=== PATIENT | male | born 1955 | race Hispanic/Latino ===

== ENCOUNTER 2017-09-01 11:57 | Observation (INO) | payer OTHER ==
[~2017-09-01] VITALS: Ht 180.3 cm; Wt 113.4 kg
[2017-09-01] MEDS ORDERED: ASPIRIN 81 MG CHEW TAB PO ONE ×2 (12:30→15:30)
[2017-09-01 12:36] LABS: BASOPHILS % 0.8 % (0.0-1.0); EOSINOPHILS # (AUTO) 0.1 (0.0-0.4); EOSINOPHILS % 2.4 % (0.0-6.0); HEMATOCRIT 45.4 % (38.2-49.6); HEMOGLOBIN 15.6 g/dL (14.0-18.0); LYMPHOCYTES # (AUTO) 1.5 (1.0-3.2); LYMPHOCYTES % 29.4 % (18.0-39.1); MEAN CORPUSCULAR HEMOGLOBIN 29.5 pg (28-32); MEAN CORPUSCULAR HGB CONC 34.4 g/dL (31-35); MONOCYTES # (AUTO) 0.5 (0.2-0.8); MONOCYTES % 9.3 % (4.4-11.3); NEUTROPHILS # (AUTO) 2.9 (2.1-6.9); NEUTROPHILS % 57.7 % (38.7-80.0); PLATELET COUNT 209 x10e3/uL (140-360); RED BLOOD COUNT 5.28 x10e6/uL (4.3-5.7); RED CELL DISTRIBUTION WIDTH 13.7 % (11.7-14.4)
[2017-09-01 12:47] LABS: INR 1.08; PARTIAL THROMBOPLASTIN TIME 28.6 seconds (23.8-35.5); PROTHROMBIN TIME 13.2 seconds (11.9-14.5)
[2017-09-01 12:54] LABS: ALANINE AMINOTRANSFERASE 17 IU/L (0-55); ALBUMIN 3.9 g/dL (3.5-5.0); ALBUMIN/GLOBULIN RATIO 1.2 (0.8-2.0); ALKALINE PHOSPHATASE 96 IU/L (40-150); ANION GAP 10.5 mmol/L (8-16); BLOOD UREA NITROGEN 14 mg/dL (7-26); BUN/CREATININE RATIO 18 (6-25); CALCIUM 9.4 mg/dL (8.4-10.2); CARBON DIOXIDE 29 mmol/L (22-29); CHLORIDE 106 mmol/L (98-107); CREATINE KINASE 60 IU/L (30-200); CREATININE, SERUM 0.78 mg/dL (0.72-1.25); EST GLOMERULAR FILTRATION RATE > 60 ML/MIN (60-); GLUCOSE 102 mg/dL (74-118); POTASSIUM 3.5 mmol/L (3.5-5.1); SODIUM 142 mmol/L (136-145)
--- NOTE | 2017-09-01 13:51 | Diagnostic Imaging Report ---
PROCEDURE:X-RAY CHEST, ONE VIEW COMPARISON:None. INDICATIONS:CHEST PAIN, HEADACHE FINDINGS: The lungs are well-inflated. No focal airspace consolidation, pleural effusion, or pneumothorax. Tortuosity of the thoracic aorta with borderline enlargement of the cardiac silhouette. Prominence of the right peritracheal region of the mediastinum likely reflects great vessel tortuosity. No pulmonary edema. No acute osseous abnormality. CONCLUSION: No acute cardiopulmonary abnormality. Dictated by: Christian Henderson M.D. on 09/01/2017 at 13:50 Electronically approved by: Christian Henderson M.D. on 09/01/2017 at 13:50
--- OUTSIDE RECORDS SUMMARY | 2017-09-01 15:29 | XMS REPORT ---
Author Author [facility] Address Unknown Phone Unavailable Care Team Providers Care Water Superintendent Name Role Phone FABIO REGAN Unavailable Unavailable Problems This patient has no known problems. Allergies, Adverse Reactions, Alerts This patient has no known allergies or adverse reactions. Medications This patient has no known medications. Results Test Description Test Time Test Comments Text Results Atomic Results Result Comments CHEST SINGLE (NOT PORTABLE) [place] [id number] Patient Name: OBED PARKER MR #: [id number] : 1955 Age/Sex: 62/M Req #: [id number] Adm Physician: Ordered by: FABIO REGAN MD Report #: [id number] Location: ER Room/Bed: Procedure: [id number] DX/CHEST SINGLE (NOT PORTABLE) Exam Date: 09/01/17 Exam Time: 1325 REPORT STATUS: Signed PROCEDURE: X-RAY CHEST, ONE VIEW COMPARISON: None. INDICATIONS: CHEST PAIN, HEADACHE FINDINGS: The lungs are well-inflated. No focal airspace consolidation, pleural effusion, or pneumothorax. Tortuosity of the thoracic aorta with borderline enlargement of the cardiac silhouette. Prominence of the right peritracheal region of the mediastinum likely reflects great vessel tortuosity. No pulmonary edema. No acute osseous abnormality. CONCLUSION: No acute cardiopulmonary abnormality. Dictated by: Airam Diaz M.D. on 09/01/2017 at 13:50 Electronically approved by: Airam Diaz M.D. on 09/01/2017 at 13:50 Dictated By : AIRAM DIAZ MD [id number] Transcribed By: FRANCOISE on 09/01/17 1350 COPY TO: FABIO REGAN MD
[2017-09-01] MEDS ORDERED: NITROGLYCERIN 0.4 MG SUBL SL PRN ×2 (15:30)
[2017-09-01 16:02] LABS: CHOL/HDL RATIO 2.5 (3.9-4.7)
[2017-09-01] MEDS: FAMOTIDINE 20 MG TAB PO SCH (16:49)
[2017-09-01] MEDS ORDERED: ASPIR 8181 MG PO (17:19)
[2017-09-01] MEDS ORDERED: LISINOPRIL10 MG PO (17:19)
[2017-09-01] MEDS ORDERED: HYDROCHLOROTHIA25 MG PO (17:19)
[2017-09-01] MEDS ORDERED: ATORVASTATIN CA20 MG PO (17:19)
[2017-09-01 21:10] VITALS: BP 142/87
[2017-09-01 21:58] LABS: CREATINE KINASE MB 0.7 ng/mL (0-5.0)
[2017-09-01 22:35] VITALS: BP 142/87
[2017-09-01] MEDS: SIMVASTATIN 40 MG TAB PO SCH (22:47)
[2017-09-01 23:23] VITALS: BP 142/87
[2017-09-02] VITALS (8 sets, daily range): BP systolic 119–177; BP diastolic 58–83
[2017-09-02 07:23] LABS: CREATINE KINASE MB 0.6 ng/mL (0-5.0)
[2017-09-02] MEDS: FAMOTIDINE 20 MG TAB PO SCH ×2 (07:30→17:19)
--- NOTE | 2017-09-02 07:37 | Consultation ---
DATE OF CONSULTATION: CARDIOLOGY CONSULTATION CHIEF COMPLAINT: The patient is a 62 year old with chest pain. HISTORY OF PRESENT ILLNESS: The patient is a 62 year old who has been having chest pain at home. The patient reports that it feels air in the chest and some times it lasts an hour to 2 hours. The patient has had no nausea. No vomiting. No abdominal pain. No dyspnea. PAST MEDICAL HISTORY: Significant for: 1. Hypertension. 2. Hyperlipidemia. CURRENT MEDICATIONS: At home include Lipitor, hydrochlorothiazide, lisinopril, and aspirin. SOCIAL HISTORY: The patient does not drink and does not smoke. FAMILY HISTORY: There is no known family history of coronary artery disease. PHYSICAL EXAMINATION GENERAL: The patient is a well-developed, well-nourished male in no distress. VITAL SIGNS: Include a temperature of 97, pulse of 50, blood pressure 133/60. HEENT: The patient's cranium was normocephalic and atraumatic. Extraocular muscles were intact. Sclerae were anicteric. Pupils equal, round and reactive to light. There is no pallor or cyanosis of the oral mucosa. There is no erythema or edema of the throat. NECK: Supple. No jugular venous distention. No carotid bruits. CHEST: Clear to auscultation and percussion. CARDIAC: Demonstrated normal S1 and S2 with a short 2/6 systolic murmur. ABDOMEN: Demonstrated good bowel sounds. No tenderness. No masses. EXTREMITIES: There is no clubbing. No cyanosis. No edema. NEUROLOGIC: The patient is alert and oriented times 3. Cranial nerves II-XII are intact. Motor strength was +5/+5 in all limbs. The patient's EKG demonstrated normal sinus rhythm with no acute changes. IMPRESSION: The patient is a 62 year old with chest pain that is concerning for angina. The patient's first set of cardiac enzymes were negative. An echocardiogram and stress Cardiolite exam have been ordered to evaluate the patient's chest pain. The patient may need cardiac cath depending upon the results of the stress Cardiolite. Job#: [id number] RI cc:DOMINIQUE PASCAL MD
[2017-09-02] MEDS: ASPIRIN 325 MG TAB EC PO SCH (07:52)
--- NOTE | 2017-09-02 09:09 | History and Physical ---
PRIMARY CARE PROVIDER: Dr. Yinka Alfred CLINICAL NURSING ASSISTANT: Dr. Yahir Caraballo CHIEF COMPLAINT: Chest pain and hypertensive urgency. HISTORY: Patient is a 62-year-old male on hydrochlorothiazide 12.5 mg once a day and lisinopril 20 mg q.12 h. The patient came into the hospital with increasing chest pain, left-sided chest pain associated increasing blood pressure. The patient is otherwise stable. Cardiac enzymes are negative. Chest x-ray unremarkable. The patient is pending for cardiac stress test. PAST MEDICAL HISTORY: Hypertension. PAST SURGICAL HISTORY: Noncontributory. SOCIAL HISTORY: Patient does not smoke or use alcohol. No recreational drug. ALLERGIES: NO KNOWN ALLERGIES. HOME MEDICATIONS: Lisinopril, hydrochlorothiazide, baby aspirin, and Lipitor. PHYSICAL EXAMINATION VITAL SIGNS: Temperature is 98, blood pressure 141/77, pulse rate 54, respirations 18. GENERAL: The patient is not in acute distress. He is awake. HEENT: Normocephalic, atraumatic and anicteric. NECK: Supple grossly. PULMONARY: Clear. CARDIOVASCULAR: Regular rate and rhythm. ABDOMEN: Soft and unremarkable. EXTREMITIES: No gross cyanosis or edema. NEUROLOGIC: No gross focal deficit. LABORATORY: Otherwise unremarkable. IMPRESSION 1. Left-sided chest pain. 2. Hypertension. 3. Hyperlipidemia. PLAN: Cardiac stress test today. If the patient is stable, the patient should be able to go home. Will monitor the patient closely. Will add on potassium 10 mEq daily for his low potassium level. Job#: [id number] ASHWIN
[2017-09-02] MEDS ORDERED: REGADENOSON 0.4 MG/5 ML SYR IV ONE (14:09)
--- NOTE | 2017-09-02 16:16 | Cardiology Report ---
DATE OF STUDY: September 02, 2017 LEXISCAN NUCLEAR STRESS TEST INDICATION: Chest pain. TECHNIQUE: The patient was given 11 millicuries of Myoview. Resting images were obtained in the horizontal long axis, vertical long axis and short axis. Patient was then hooked up to the EKG machine. Lexiscan was infused over 15 seconds. During Lexiscan infusion, the patient had no chest pain and no EKG changes. The patient was given 28 millicuries of Myoview immediately after completion of Lexiscan infusion. Stress images were obtained 30 minutes later in the horizontal long axis, vertical long axis and short axis. RESULTS: 1. The resting EKG demonstrated normal sinus rhythm with nonspecific ST and T wave changes. 2. There were no EKG changes and no symptoms during Lexiscan infusion. 3. There was a small area of decreased perfusion in the septum on the stress images. There was normal perfusion to all segments of the myocardium on the resting images. 4. There was normal left ventricular size and function with an ejection fraction of 56%. CONCLUSION: The patient has a small reversible defect in the septum which could represent myocardial ischemia. There is normal left ventricular size and function. Job#: [id number]
[2017-09-02] MEDS: SIMVASTATIN 40 MG TAB PO SCH (20:37)
[2017-09-03] VITALS: BP 165/90
[2017-09-03 04:00] VITALS: BP 154/91
[2017-09-03 07:30] VITALS: BP 160/87
[2017-09-03] MEDS: FAMOTIDINE 20 MG TAB PO SCH ×2 (07:30→16:30)
[2017-09-03 07:39] VITALS: BP 162/87
[2017-09-03] MEDS: ASPIRIN 325 MG TAB EC PO SCH ×2 (09:00→14:10)
[2017-09-03 11:28] VITALS: BP 162/88
[2017-09-03] MEDS ORDERED: HEPARIN SOD (PORCINE) 1000 UNIT/ML 30ML ONE (12:05)
[2017-09-03] MEDS ORDERED: LIDOCAINE HCL 2% LOCAL 20 ML VIAL ONE (12:06)
[2017-09-03] MEDS ORDERED: IOPAMIDOL 370 MG/ML 200 ML INFUS..BTL INJ ONE (12:06)
[2017-09-03] MEDS ORDERED: HEPARIN SOD/SOD CHLORIDE 2,000 ML ONE (12:06)
[2017-09-03] MEDS ORDERED: SODIUM CHLORIDE 0.9% 1000ML 1,000 ML ONE (12:06)
[2017-09-03] MEDS ORDERED: NITROGLYCERIN/D5W 200 MCG/ML 0 ML ONE (12:06)
[2017-09-03] MEDS ORDERED: FENTANYL CITRATE/PF 100MCG/2 ML INJ ONE (12:25)
[2017-09-03] MEDS ORDERED: MIDAZOLAM HCL 2 MG/2 ML VIAL ONE ×2 (12:25→12:59)
--- NOTE | 2017-09-03 14:37 | Operative Report ---
DATE OF PROCEDURE: OPERATION PERFORMED: Left heart catheterization. INDICATIONS: Chest pain and abnormal stress test. COMPLICATIONS: None. ANESTHESIA: Versed, fentanyl and lidocaine. TECHNIQUE: The right groin was draped and prepped in the usual fashion. The area was anesthetized with lidocaine. Standard Seldinger technique was used to place a 6-Haitian sheath into the right femoral artery without difficulty. A JL4 catheter was used to selectively engage the left coronary artery. A 3DRC catheter was used to selectively engage the right coronary artery. A pigtail catheter was used to perform a left ventriculogram. Angio-Seal device was used for closure. There were no complications. Results are as follows: 1. There is a normal left main trunk. 2. There is a large left anterior descending artery, which gave rise to a medium-size diagonal branch. There was minimal disease in the left anterior descending artery and diagonal branch. 3. There was a medium-size AV circumflex artery, which gave rise to a large, bifurcating, obtuse marginal branch. There was minimal disease in the circumflex system. 4. There was a large, dominant, right coronary artery with minimal disease. 5. There were normal left ventricular size and function with an ejection fraction of 60%. CONCLUSION: The patient has minimal coronary artery disease with normal left ventricular size and function. Job#: [id number] cc:DOMINIQUE PASCAL MD
[2017-09-03 15:29] VITALS: BP 128/80
[2017-09-03] MEDS ORDERED: POTASSIUM CHLO10 ME1 PO (17:35)
== END 2017-09-03 18:05 | disposition home or self-care (01) ==
LOC: ER 11:57 → ERHOLD 15:27 → IMCU 20:47
PROVIDERS: ADMIT Internal Medicine; ATTEND Internal Medicine
DX: I25.10 Atherosclerotic heart disease of native coronary artery without angina pectoris (principal); R07.9 Chest pain, unspecified; I16.0 Hypertensive urgency; I10 Essential (primary) hypertension; E78.5 Hyperlipidemia, unspecified
CPT/HCPCS: 36415 ×2; 71045; 77002; 78452; 80053; 80061; 82550 ×2; 82553 ×2; 83880; 84484 ×2; 85025; 85610; 85730; 93005; 93017; 93306; 93458; 99284; A9502; C1769; G0378 ×3; J2001; J2250; J7030; Q9967; 36140; 93452; J1644

== ENCOUNTER 2021-07-27 12:23 | Observation (INO) | payer MEDICARE, OTHER ==
[~2021-07-27] VITALS: Ht 180.3 cm; Wt 120.2 kg
[~2021-07-27 12:23] MED LIST: ASPIR 8181 MG PO; ATORVASTATIN CA20 MG PO; HYDROCHLOROTHIA25 MG PO; LISINOPRIL10 MG PO; POTASSIUM CHLO10 ME1 PO
[2021-07-27 14:11] LABS: BASOPHILS % 0.5 % (0.0-1.0); EOSINOPHILS # (AUTO) 0.2 (0.0-0.4); EOSINOPHILS % 2.7 % (0.0-6.0); HEMATOCRIT 48.5 % (38.2-49.6); HEMOGLOBIN 16.1 g/dL (14.0-18.0); LYMPHOCYTES # (AUTO) 1.9 (1.0-3.2); LYMPHOCYTES % 30.5 % (18.0-39.1); MEAN CORPUSCULAR HEMOGLOBIN 29.6 pg (28-32); MEAN CORPUSCULAR HGB CONC 33.2 g/dL (31-35); MEAN CORPUSCULAR VOLUME 89.2 fL (81-99); MONOCYTES # (AUTO) 0.8 (0.2-0.8); MONOCYTES % 12.1 % (4.4-11.3); NEUTROPHILS # (AUTO) 3.4 (2.1-6.9); PLATELET COUNT 237 x10e3/uL (140-360); RED BLOOD COUNT 5.44 x10e6/uL (4.3-5.7)
[2021-07-27 14:33] LABS: ALBUMIN 4.1 g/dL (3.5-5.0); ALBUMIN/GLOBULIN RATIO 1.1 (0.8-2.0); ANION GAP 15.3 mmol/L (8-16); CALCIUM 9.6 mg/dL (8.4-10.2); CREATININE, SERUM 0.8 mg/dL (0.72-1.25); POTASSIUM 3.3 mmol/L (3.5-5.1)
[2021-07-27] MEDS ORDERED: ASPIRIN 81 MG CHEW TAB PO ONE (15:15)
[2021-07-27 16:15] VITALS: BP 139/94
[2021-07-27 16:15] LABS: CREATINE KINASE MB 1.1 ng/mL (0-5.0)
[2021-07-27 16:57] VITALS: BP 139/94
[2021-07-27] MEDS ORDERED: NIFEDIPINE ER30 M1 PO (16:57)
[2021-07-27] MEDS ORDERED: PROTONIX20 MG PO (16:57)
[2021-07-27] MEDS ORDERED: LOSARTAN POTAS100 MG PO (16:57)
[2021-07-27 20:00] VITALS: BP 140/101
[2021-07-27] MEDS ORDERED: HYDRALAZINE HCL 20 MG/ML VIAL IV PRN (22:30)
[2021-07-27] MEDS: Morphine 4mg Syringe 4 MG/ML INJ IV PRN (23:32)
[2021-07-28] VITALS (9 sets, daily range): BP systolic 128–181; BP diastolic 75–98
[2021-07-28 00:23] LABS: CREATINE KINASE MB 0.9 ng/mL (0-5.0)
[2021-07-28 06:48] LABS: BASOPHILS % 0.8 % (0.0-1.0); EOSINOPHILS # (AUTO) 0.2 (0.0-0.4); EOSINOPHILS % 4.2 % (0.0-6.0); HEMATOCRIT 44.7 % (38.2-49.6); LYMPHOCYTES # (AUTO) 1.6 (1.0-3.2); LYMPHOCYTES % 32.5 % (18.0-39.1); MEAN CORPUSCULAR HEMOGLOBIN 29.9 pg (28-32); MEAN CORPUSCULAR HGB CONC 33.6 g/dL (31-35); MONOCYTES # (AUTO) 0.7 (0.2-0.8); MONOCYTES % 14.9 % (4.4-11.3); NEUTROPHILS # (AUTO) 2.4 (2.1-6.9); NEUTROPHILS % 47.4 % (38.7-80.0); PLATELET COUNT 208 x10e3/uL (140-360); RED BLOOD COUNT 5.02 x10e6/uL (4.3-5.7); RED CELL DISTRIBUTION WIDTH 13.7 % (11.7-14.4)
[2021-07-28 07:18] LABS: CREATINE KINASE MB 0.7 ng/mL (0-5.0)
[2021-07-28 07:28] LABS: ANION GAP 13.6 mmol/L (8-16); CALCIUM 9.3 mg/dL (8.4-10.2); CREATININE, SERUM 0.83 mg/dL (0.72-1.25); POTASSIUM 3.6 mmol/L (3.5-5.1)
[2021-07-28] MEDS: LOSARTAN POTASSIUM 100 MG TAB PO SCH (08:57)
[2021-07-28] MEDS: ASPIRIN 81 MG CHEW TAB PO SCH (08:57)
[2021-07-28] MEDS: HYDROCHLOROTHIAZIDE 25 MG TAB PO SCH (08:57)
[2021-07-28] MEDS: NIFEDIPINE CR 30 MG TAB PO SCH (08:58)
[2021-07-28] MEDS: Morphine 4mg Syringe 4 MG/ML INJ IV PRN (10:07)
[2021-07-28] MEDS: ATORVASTATIN 20 MG TAB PO SCH (21:58)
[2021-07-28] MEDS: PANTOPRAZOLE SOD 40 MG TABEC PO SCH (21:58)
[2021-07-28] MEDS ORDERED: CYCLOBENZAPRINE HCL 10 MG TAB PO PRN (22:30)
[2021-07-29] VITALS (8 sets, daily range): BP systolic 131–151; BP diastolic 82–107
[2021-07-29] MEDS: ASPIRIN 81 MG CHEW TAB PO SCH (10:39)
[2021-07-29] MEDS: HYDROCHLOROTHIAZIDE 25 MG TAB PO SCH (10:41)
[2021-07-29] MEDS: LOSARTAN POTASSIUM 100 MG TAB PO SCH (10:41)
[2021-07-29] MEDS: NIFEDIPINE CR 30 MG TAB PO SCH (10:41)
[2021-07-29] MEDS: ATORVASTATIN 20 MG TAB PO SCH (21:03)
[2021-07-29] MEDS: PANTOPRAZOLE SOD 40 MG TABEC PO SCH (21:03)
[2021-07-29] MEDS: TRAMADOL HCL 50 MG TAB PO PRN (22:45)
[2021-07-30] VITALS: BP 145/95
[2021-07-30 04:01] VITALS: BP 135/87
[2021-07-30] MEDS ORDERED: ASPIRIN CHEW81 MG PO (07:15)
[2021-07-30] MEDS ORDERED: FAMCICLOVIR125 MG PO (07:18)
[2021-07-30] MEDS ORDERED: VALACYCLOVIR HCL 500 MG TAB PO SCH (07:45)
[2021-07-30] MEDS ORDERED: ULTRAM50 MG PO ×2 (07:48→07:51)
[2021-07-30 08:15] VITALS: BP 143/99
[2021-07-30 08:43] VITALS: BP 143/99
[2021-07-30] MEDS: LOSARTAN POTASSIUM 100 MG TAB PO SCH (09:03)
[2021-07-30] MEDS: NIFEDIPINE CR 30 MG TAB PO SCH (09:03)
[2021-07-30] MEDS: HYDROCHLOROTHIAZIDE 25 MG TAB PO SCH (09:03)
[2021-07-30] MEDS: ASPIRIN 81 MG CHEW TAB PO SCH (09:03)
[2021-07-30] MEDS: TRAMADOL HCL 50 MG TAB PO PRN (09:04)
== END 2021-07-30 10:28 | disposition home or self-care (01) ==
LOC: ER 12:25 → ERHOLD 15:10 → MED/SURG 16:15
PROVIDERS: ADMIT Internal Medicine; ATTEND Internal Medicine
DX: R07.89 Other chest pain (principal); R07.81 Pleurodynia; R23.8 Other skin changes; I10 Essential (primary) hypertension; E78.5 Hyperlipidemia, unspecified; E66.9 Obesity, unspecified; Z68.37 Body mass index [BMI] 37.0-37.9, adult; Z20.822 Contact with and (suspected) exposure to COVID-19
CPT/HCPCS: 36415 ×2; 71045; 80048; 80053; 82550 ×2; 82553 ×2; 83690; 84484 ×2; 85025 ×2; 85379; 93005 ×2; 94799 ×2; 99284; G0378 ×4; J2270 ×2; S0164 ×2; U0002